=== PATIENT | female | born 1995 | race Caucasian/White ===

== ENCOUNTER 2024-04-08 12:40 | Emergency (ER) | payer BC, SELFPAY ==
[2024-04-08 12:54] VITALS: BP 129/92
[2024-04-08 13:25] LABS: COVID-19 Antigen Positive (Negative)
[2024-04-08 13:34] LABS: HCG, Serum Qualitative Screen Negative
[2024-04-08 13:37] LABS: ALT (SGPT) 38 U/L (0-35); AST (SGOT) 33 U/L (14-36); Albumin 4.6 g/dl (3.5-5.0); Alkaline Phosphatase 78 U/L (38-126); Blood Urea Nitrogen 11 mg/dl (7-17); Calcium 9.5 mg/dl (8.4-10.2); Carbon Dioxide 25 mmol/L (22-30); Chloride 101 mmol/L (98-107); Glucose 102 mg/dl (70-99); Potassium 3.7 mmol/L (3.5-5.1); Sodium 136 mmol/L (135-145); Total Bilirubin 0.4 mg/dl (0.2-1.3); Total Protein 7.3 g/dl (6.3-8.2); eGFR > 60.00
[2024-04-08 14:11] LABS: Hematocrit 41.2 % (37.0-47.0); Hemoglobin 13.9 g/dL (12.0-16.0); Mean Corp Hgb Conc. 33.7 g/dL (33.0-37.0); Mean Corpuscular Hgb 29.5 pg (27.0-31.0); Mean Corpuscular Volume 87.5 fL (81.0-99.0); Mean Platelet Volume 9.2 fL (7.4-10.4); Platelet Count 150 10^3/uL (130-400); Red Blood Cell Count 4.71 10^6/uL (4.20-5.40); White Blood Cell Count 4.1 10^3/uL (4.8-10.8)
[2024-04-08 15:41] LABS: Absolute Neutrophils -Man Diff 1.9 10^3/uL (1.4-6.5); Atypical Lymphocytes 2 %; Band Neutrophils 0 % (0-3); Eosinophils 1 % (0-6); Lymphocytes 23 % (20-51); Monocytes 26 % (2-9); Normal RBC Morphology Yes; Platelets Checked Yes; Segmented Neutrophils 48 % (42-75)
[2024-04-08 15:42] LABS: Total Cells Counted 100
[2024-04-08 16:56] VITALS: BP 127/89
--- NOTE | 2024-04-08 17:16 | ED.GENMED ---
History of Present Illness
General
Chief Complaint: Cough
Source: patient
Exam Limitations: none
Time Seen by Provider: 04/08/24 16:56
Nursing documentation reviewed up to this point in time: agreed with
History of Present Illness
History of Present Illness:
Patient to ED with complaint of cough for the past 5 weeks. States 2 days ago she noted cough became more productive. Now with headache. Denies fever/chills. Brought to ED by mother for eval.
Past History
Past History
ED Past Medical History: None
Review of Systems
Review of Systems
Constitutional: Reports fatigue
EENT: Reports no symptoms
Respiratory: Reports cough
Cardiac: Reports no symptoms
ABD/GI: Reports no symptoms
: Reports no symptoms
Musculoskeletal: Reports no symptoms
Skin: Reports no symptoms
Neurological: Reports headache
Psychiatric: Reports no symptoms
Phy Exam
General Physical Exam
General Presentation: well appearing and no apparent distress
General age: appears stated age
General Skin: warm and dry
General Habitus: normal
General Mental: alert
Cardiovascular Exam
Cardiovascular Exam: regular rate/rhythm
Pulmonary Exam
Pulmonary Exam: lungs clear, no respiratory distress, chest non tender and no wheezing
Cough: other (Productive cough x 2 days. Today cough is dry.)
Musculoskeletal Exam
Musculoskeletal Exam: full ROM
Skin Exam
Skin Exam: normal color, warm/dry and no rash
Psychiatric Exam
Psychiatric Exam: normal mood/affect
Course
Orders/Labs/Results
Orders:
Orders
04/08/24 12:43
CXR2 [CR Chest - 2 Views ] Urgent
Comment:
Reason For Exam: cough x 5 weeks
04/08/24 13:04
Test Result ONCE
04/08/24 13:09
CBC/With Diff [Complete Blood Count/With Diff] Urgent
Comprehensive Metabolic Panel Urgent
HCG, Serum Qualitative Screen Urgent
Manual Differential Urgent
Influenza A+B Rapid Molecular Urgent
LUBA Source: Nasal Swab
Specimen Description:
04/08/24 13:13
COVID-19 Antigen Urgent
Source: Nasal Swab
Abnormal Lab Results
04/08/24 04/08/24
13:09 13:13
WBC 4.1 L 10^3/uL
(4.8-10.8)
Monocytes (Manual) 26 H %
(2-9)
Glucose 102 H mg/dl
(70-99)
ALT 38 H U/L
(0-35)
SARS-CoV-2 Antigen Positive A
(Negative)
04/08/24 13:09
04/08/24 13:09
Vital Signs
Initial and Last Documented VS:
Initial Vital Signs
Pulse Resp BP Pulse Ox
111 16 129/92 98
04/08/24 12:54 04/08/24 12:54 04/08/24 12:54 04/08/24 12:54
Last Documented Vital Signs
Pulse Resp BP Pulse Ox
98 16 127/89 98
04/08/24 16:56 04/08/24 16:56 04/08/24 16:56 04/08/24 16:56
*Radiology
Radiology exam reviewed: radiology read reviewed
*Pulse Oximetry
Patient hypoxic: no
*Critical Care Note
Total Time (30-74mins, 75-104mins- exclusive of procedures): Not Applicable
Update Note
Update Note:
Patient to ED [facility] complaint of cough x 5 weeks. States she was place on a steroid inhaler and oral steroids without improvement. 2 days ago cough became productive. Today cough became dry. Difficulty sleeping due tocough. Labs reviewed. Covid
pos. CXR NAD. VSS, afebrile. NO hypoxemia. WIll give short course phenergan with codieine. She will be discharge home with COVID instructions. Follow up with PCP. Has appointment on 04/19/2024
ED Attending Note
-
Portions of this chart may have been created with voice recognition software.� Occasional wrong word or��sound alike� substitutions may have occurred due to the inherent limitations of voice recognition software.
Discharge Plan
Departure
Patient Disposition: Home (Routine Discharge)
Date of Disposition: 04/08/24
Time of Disposition: 17:11
Patient with high blood pressure during this ER visit?: No
Condition: Good
Covid-19: Not Applicable
Discharge Problem:
COVID-19
Instructions: Cough, Adult (DC), COVID-19 - ED discharge instructions
Prescriptions:
New
promethazine-codeine 6.25-10 mg/5 mL syrup
5 ml PO Q6H PRN (Reason: Cough) Qty: 150 0RF
Referrals:
Radha Gray PA-C [Family Provider] - Call in 1-3 days for appt
Interventions
Interventions:
*Risk Screen - Suicide Last Done: 04/08/24 12:54
*General Assessment Last Done: 04/08/24 16:17
*Neglect/Abuse Screening Last Done: 04/08/24 12:54
*ED COVID-19 Vaccine History Last Done: 04/08/24 16:17
ED- Pulmonary Assessment Last Done: 04/08/24 16:17
Discharge Date and Time
Print Language: [place]
== END 2024-04-08 17:24 | disposition home or self-care (01) ==
LOC: EMR 12:40
PROVIDERS: Emergency Medicine; EMERGENCY PHYSICIAN Emergency Medicine; FAMILY PHYSICIAN Physician Assistant Medical
DX: U07.1 COVID-19 (principal); Z11.52 Encounter for screening for COVID-19
CPT/HCPCS: 99284; 71046; 80053; 84703; 85025; 87502; 87811